=== PATIENT | female | born 1970 | race Caucasian/White ===

== ENCOUNTER 2021-02-16 23:38 | Emergency (ER) | payer OTHER, MEDICAID, SELFPAY ==
[2021-02-16 23:40] VITALS: BP 138/99; PULSE 85; RESP 16; TEMP 36.1; O2SAT 97; BMI 23.9
--- NOTE | 2021-02-17 | RAD_ITS ---
HISTORY: Foreign body Technique: Right Knee; AP, lateral, and oblique radiographs Comparison: None available Findings: No acute fracture or dislocation. Tricompartment osteoarthritis is present with joint space loss and osteophytes. Disease is greatest within the patellofemoral joint with subcortical cystic degenerative change. A small knee effusion is present. Dorsal ossicles likely represent a flabella. Sclerosis within the distal tibia is likely chronic disease No focal abnormality or radiopaque foreign body is seen in the surrounding soft tissues. RAD/Knee 3 Views IMPRESSION: Tricompartment right knee osteoarthritis at 0034 Reported and signed by: Bernardo Tran MD Electronically Signed: Bernardo Tran MD at 0:32 EDT Tel , Service support ,
--- NOTE | 2021-02-17 00:07 | ED.VIS.LOWEX ---
HPI History of Present Illness Chief Complaint: Laceration Narrative Narrative: Patient presenting for evaluation secondary to a right knee injury. Patient states she was walking into work, forgot her badge so she turned around and went back out in the parking lot. She was stepping over a concrete curb, and states that she tripped over a piece of rebar that was sticking up out of it. She suffered a mechanical fall mainly onto her right knee. She suffered an abrasion and a small puncture laceration to the knee. States that it is still been bleeding somewhat, so she is presenting to the emergency department. Pain is mild. Patient denies any history of immunosuppression or easy bruising or bleeding. She denies any foreign body sensation. She denies any inability to ambulate. Her tetanus status is up-to-date. [facility] Medical History Asthma Hypertension Home Medications Unobtainable 02/16/21 [History Last Taken Unknown] Allergy/AdvReac Type Severity Reaction Status Date / Time No Known Allergies Allergy Verified 02/16/21 23:39 Social History Smoking Status: Current every day smoker tobacco type: cigarettes ROS ROS ED Musculoskeletal Musculoskeletal: Reports other Details: Pain in the right knee Integumentary Reports other Details: Abrasion and laceration Neurologic Neurologic: Denies paresthesias or weakness Hematologic/Lymphatic Hematologic/Lymphatic: Denies easy bleeding or easy bruising Allergic/Immunologic Allergic/Immunologic ED: Reports other Details: No history of immunosuppression EXAM Physical Exam Const Vital Signs: 02/16/21 23:40 Temperature 97 F L Temperature Source Temporal Pulse Rate 85 Respiratory Rate 16 Blood Pressure 138/99 H Blood Pressure Mean 112 Pulse Ox 97 Positive well nourished and well developed General Appearance ED: well developed HEENT normocephalic and atraumatic Resp normal respiratory effort Cardio regular rate and regular rhythm Extremity Extremity Narrative: Examination the patient's right lower extremity shows an abrasion that is inferior to the patient's patella. There is a puncture wound over the medial aspect of that with some mild active bleeding. Minimal tenderness to palpation. Knee joint is nontender with full range of motion no crepitus with range of motion. Patient is able to bear weight. Neuro oriented x3 Sensorium / Orientation: alert Psych mental status grossly normal Skin Skin Narrative: Abrasion and puncture wound as noted above MDM MDM MDM Narrative Medical decision making narrative: Patient presented secondary to a laceration and abrasion on the right knee. Radiographs were performed by my personal interpretation show no signs of fracture or foreign body. Patient has almost like a punch biopsy type pole in the medial portion of this abrasion that continues to see blood and I think will benefit from suture repair. It was repaired as noted in the procedure note. Patient will follow up with primary care for suture removal in 7 to 10 days. She understands signs and symptoms which to return. Radiography X-Ray: Read by ED Physician Diagnostic Testin view of the knee shows no evidence of acute fracture no signs of foreign body Procedures Lacerations Right knee laceration: Length: 6 in Depth: Skin Shape: Circular Prep: Sterile Conditions Laceration repair: Irrigated, Lidocaine and Skin sutures Irrigated (ml): 250 Number of Sutures/[place]: 1 Suture Information: Ethilon Comment: Patient had a wound over her knee that was similar to a punch biopsy and was about 0.5 cm and circular. It was explored, I was not able to identify any foreign material and there was no evidence of foreign material on x-ray. It was anesthetized using about 3 cc of 1% lidocaine. A 16-gauge Angiocath was placed on a 20 cc syringe and this was vigorously irrigated with about 250 cc of sterile saline. It was again explored there was no evidence of foreign material. A single pursestring suture was placed surrounding the wounds, and I was able to pull together the wound edges and approximate them well. Patient tolerated this well. Discharge Plan Triage Chief Complaint: Laceration ED Provider: Munir Arriaga Dx/Rx/DC Orders Clinical Impression: Laceration of knee, right, Abrasion of knee, right Instructions: ED Abrasion, ED Laceration, Foot: All Closures Prescriptions: No Action Unobtainable RF: 0 Primary Care Provider: NOT,DEFINED Referrals: Arlen Holley MD [STAFF PHYSICIAN] - 7 Days for suture removal NOT,DEFINED [Primary Care Provider] - Activity Restrictions/Additional Instructions: You can follow-up with your previously established primary care physician in 7 days for suture removal, or if you do not have a primary care physician you can follow-up with Dr. Holley. Disposition Disposition: Home, self care
[2021-02-17 01:06] VITALS: BP 138/99; PULSE 85; RESP 16; O2SAT 97
== END 2021-02-17 01:07 | disposition home or self-care (01) ==
LOC: ED 02-17 00:53
PROVIDERS: Emergency Provider Emergency Medicine
DX: S81.011A Laceration without foreign body, right knee, initial encounter (principal); J45.909 Unspecified asthma, uncomplicated; I10 Essential (primary) hypertension; F17.210 Nicotine dependence, cigarettes, uncomplicated; W26.8XXA Contact with other sharp object(s), not elsewhere classified, initial encounter; Y93.01 Activity, walking, marching and hiking; Y92.481 Parking lot as the place of occurrence of the external cause; Y99.8 Other external cause status
CPT/HCPCS: 12001; 73562; 99283